=== PATIENT | male | born 1955 | race Caucasian/White ===

== ENCOUNTER → 2016-10-07 | Outpatient (CLI) | payer OTHER ==
[~2016-10-07] MED LIST: ALB/IPRATROPIUM/1 E1 INH; AMIODARONE HCL100 MG PO; AMLODIPINE BESIL1 GM PO; ASPIRIN EC81 M1 PO; ASPIRIN PO; BRILINTA90 MG PO; BUSPAR5 MG PO; CATAPRES0.1 M1 PO; CHANTIX1 MG BC; CLONIDINE PO; DULOXETINE HCL60 MG PO; FARXIGA10 MG PO; FLEXERIL10 MG PO; FUROSEMIDE40 MG PO; GLUCOPHAGE500 MG PO; HCTZ PO; HYDRALAZINE HCL25 MG PO; JANUVIA25 MG PO; K-DUR10 MEQ PO; KCL PO; LASIX PO; LIPITOR20 MG PO; LISINOPRIL20 MG PO; LORTAB 7.5-5001 TAB PO; LOTREL 5-20 MG1 CAP PO; LOTREL PO; METFORMIN HCL1000 M1 PO; METOPROLOL TAR25 MG PO; NEURONTIN300 MG PO; NITROGLYCERIN0.4 MG SL; NITROGYLCERIN SUBLINGUAL; NOVOLOG FL100 UNIT/1; OMEPRAZOLE20 M1 PO; PLAVIX PO; PREDNISONE PO; SYMBICORT 160/4.6 GM INH; TEKTURNA PO; TOPROL XL PO; TYLENOL EXTRA500 M1 PO; VASCEPA1 GM PO; VICODIN 5/500 T1 TAB PO; ZESTRIL40 MG PO; ZOCOR PO
[2016-10-07 13:00] LABS: URINE APPEARANCE CLEAR; URINE BILIRUBIN NEG (NEG); URINE BLOOD NEG (NEG); URINE COLOR YELLOW; URINE GLUCOSE >1000 MG/DL (NEG); URINE KETONE NEG (NEG); URINE LEUKOCYTE ESTERASE NEG (NEG); URINE NITRATE NEG (NEG); URINE PROTEIN NEG (NEG); URINE SPECIFIC GRAVITY 1.025 (1.003-1.035); URINE UROBILINOGEN 0.2 MG/DL (NEG)
[2016-10-07 13:02] LABS: CULTURE INDICATED? NO
== END | disposition home or self-care (01) ==
LOC: CLAB 11:36
PROVIDERS: Nurse Practitioner
DX: R10.31 Right lower quadrant pain (principal); R10.32 Left lower quadrant pain
CPT/HCPCS: 81003

== ENCOUNTER → 2016-10-21 | Outpatient (CLI) | payer OTHER ==
[2016-10-21 14:56] LABS: CREATININE SERUM 1.7 mg/dL (0.6-1.4); GLOM FILT RATE Estimated 42.3 mL/min (>60)
== END | disposition home or self-care (01) ==
LOC: CCAT 13:45
PROVIDERS: Nurse Practitioner
DX: R10.31 Right lower quadrant pain (principal); R10.32 Left lower quadrant pain
CPT/HCPCS: 36415; 82565; 84520

== ENCOUNTER → 2016-10-25 | Outpatient (CLI) | payer OTHER ==
--- NOTE | ~2016-10-25 | CT4 ---
[facility] A Service [facility] RADIOLOGY TEXT RESULTS PATIENT: ELAINE DONOVAN LOCATION: CCAT : 54 UNIT #: [id number] AGE: [address]: ELEANOR CORNELIUS APRN SEX: M ORDER DR: [id number] [facility] [address]. [place], [place] [address] [id number] O MR#: [id number] Acc #: [id number] NAME: ELAINE DONOVAN. : 1955 SEX: M STUDY DATE/TIME: 10/25/2016 9:42 UNIT: CCAT ROOM: STUDY DESCRIPTION: CT Abd and Pelv Wo Cont Attending Physician: Eleanor Cornelius Aprn Referring Physician: Eleanor Cornelius Aprn Ordering Physician: Eleanor Cornelius Aprn Primary Care Physician: Inocencio Yost M.D. MEDICAL IMAGING REPORT This report is preliminary unless electronic signature is present EXAM CT abdomen and pelvis without contrast INDICATIONS Right-sided abdominal pain for the past [address] of the abdomen and pelvis The CT exam was performed with one or more of the following radiation dose reduction techniques: automatic exposure control, adjustment of mA and/or kV according to patient size, and iterative reconstruction. COMPARISON: None. FINDINGS Abdomen without contrast: The included lung bases are clear. Liver enlarged measuring 20.8 cm. Hepatic steatosis. Kidneys unremarkable. 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 Unremarkable pancreas and gallbladder. The bowel loops are nondilated. Appendix is normal. Pelvis without contrast: No radiodense bladder calculus. Previous aortofemoral bypass. No pelvic mass or fluid. No aggressive appearing bone lesion. IMPRESSION 1. No acute findings. 2. Hepatomegaly with steatosis. [facility] A Service [facility] RADIOLOGY TEXT RESULTS PATIENT: ELAINE DONOVAN LOCATION: CCAT : 54 UNIT #: [id number] AGE: [address]: ELEANOR CORNELIUS APRN SEX: M ORDER DR: Dictated by... Garo Astudillo M.D. THIS IS AN ELECTRONICALLY VERIFIED REPORT Garo Astudillo M.D. at 10/26/2016 7:11 AM YONY/rosibel TD: 10/25/2016 12:55 JOB #: [id number] MEDICAL IMAGING REPORT Page 1 of 1 COPY
== END | disposition home or self-care (01) ==
LOC: CCAT 08:37
DX: R10.31 Right lower quadrant pain (principal); R10.32 Left lower quadrant pain; R16.0 Hepatomegaly, not elsewhere classified; K76.0 Fatty (change of) liver, not elsewhere classified
CPT/HCPCS: 74176

== ENCOUNTER → 2016-10-27 | Day surgery (SDC) | payer OTHER ==
--- NOTE | ~2016-10-27 | OR ---
Unit #: [id number] #: [id number] Patient: ELAINE DONOVAN [id number] [address] [place], [place] [address] [id number] O MR#: [id number] NAME: ELAINE DONOVAN ROOM: Date of Procedure: 10/27/2016 Admission Date: 10/27/2016 Surgeon: Pablo Locke M.D. : 1955 Attending Physician: Pablo Locke M.D. Referring Physician: Pablo Locke M.D. Primary Care Physician: Inocencio Yost M.D. OPERATIVE REPORT ATTENDING PHYSICIAN Dr. Inocencio Yost. PREOPERATIVE DIAGNOSES The patient has presented with a history of left and right lower quadrant abdominal pain, epigastric pain, dyspepsia, as well as needs a colorectal cancer screening. PROCEDURES PERFORMED Upper gastrointestinal endoscopy as well as colonoscopy with polypectomy. POSTOPERATIVE DIAGNOSES For upper endoscopy: Completely normal examination up to third part of duodenum. For colonoscopy: The patient had two polyps. The first one was in the cecum and the second one was in the rectum. The polyps ranged in size from 4 to 8 mm each. In addition, rest of the examination up to cecum and terminal ileum was normal. The quality of the prep was excellent. RECOMMENDATIONS 1. Follow up the results of polyp histology. 2. The patient will be seen in the office in 10 to 12 weeks' time. SEDATION USED MAC. DESCRIPTION OF PROCEDURE Following detailed explanation of the potential risks and complications of upper endoscopy and a colonoscopy, namely perforation, bleeding, and complication related to sedation, the patient was brought to GI lab and laid in the left lateral decubitus position. Lubricated tip of the Olympus video upper endoscope was passed through the bite block into the proximal esophagus under direct vision. The entire esophageal mucosa was examined and appeared normal. Z-line was nicely demarcated, there being no esophagitis or hiatus hernia. The scope was then advanced into the gastric cavity and the latter was insufflated. Mucosa of the fundus, body, and antrum was examined and appeared unremarkable. Pylorus was intubated with visualization of the normal duodenal bulb and second and third part of the duodenum. Upon withdrawal and retroflexion, incisura, cardia, and greater curve was examined and no additional findings were noted. The scope was then withdrawn in the distal esophagus. The entire Unit #: [id number] #: [id number] Patient: ELAINE DONOVAN esophageal mucosa was examined all the way up to pharynx. No additional findings were noted. The examination table was then turned by 180 degrees and the patient was positioned for a colonoscopy. A digital rectal examination was performed, which was normal. Lubricated tip of the Olympus video colonoscope was inserted through the anus and advanced under direct vision. The scope was advanced past rectosigmoid into descending colon. No diverticula were noticed in this area. The scope tip was then navigated all the way up to cecum with visualization of ileocecal valve and the appendiceal orifice. Preparation was good with good visualization and photodocumentation was obtained. Last few inches of the terminal ileum were also visualized after intubation of the ileocecal valve and appeared normal. Successive segments of the colonic mucosa were examined upon withdrawal. Single sessile polyp was noted in the cecum. This was about 8 mm in size. It was removed using snare polypectomy. A second smaller sessile polyp about 5 mm in size was seen in the rectum, it was also removed using snare polypectomy. Both the polyps were retrieved and sent for histology. Excellent hemostasis was achieved. No additional polyps were found. The patient did not have any diverticulosis nor any hemorrhoids. The scope was then withdrawn and the patient returned to recovery area. He tolerated the procedure without any postprocedure complications. It is noteworthy, the patient also had a normal CT scan of the abdomen done recently. Dictated by... Donovan Haas/marquise TD: 10/27/2016 22:39 JOB #: [id number] OPERATIVE REPORT Page 1 of 1 X Pablo Locke MD X PROCEDURE OPERATIVE NOTE
== END | disposition home or self-care (01) ==
LOC: COPS 12:45
DX: Z12.11 Encounter for screening for malignant neoplasm of colon (principal); D12.0 Benign neoplasm of cecum; K62.1 Rectal polyp; I25.119 Atherosclerotic heart disease of native coronary artery with unspecified angina pectoris; J44.9 Chronic obstructive pulmonary disease, unspecified; F17.210 Nicotine dependence, cigarettes, uncomplicated; Z95.5 Presence of coronary angioplasty implant and graft; Z98.890 Other specified postprocedural states
CPT/HCPCS: 82947; 88305; J2250

== ENCOUNTER → 2017-01-11 | Outpatient (CLI) | payer OTHER ==
--- NOTE | ~2017-01-11 | US83 ---
[facility] A Service of [facility] & [facility] RADIOLOGY TEXT RESULTS PATIENT: ELAINE DONOVAN LOCATION: CNIV : 53 UNIT #: [id number] AGE: [address]: INOCENCIO ROTHMAN MD SEX: M ORDER DR: [id number] [place] [id number] [facility]. [place], [place] [address] [id number] O MR#: [id number] #: [id number] NAME: ELAINE DONOVAN : 1955 SEX: M STUDY DATE/TIME: 01/11/2017 8:54 UNIT: CNIV ROOM: STUDY DESCRIPTION: [employer] Attending Physician: Inocencio Rothman M.D. Referring Physician: Inocencio Rothman M.D. Ordering Physician: Inocencio Rothman M.D. Primary Care Physician: Inocencio Rothman M.D. MEDICAL IMAGING REPORT This report is preliminary unless electronic signature is present DATE OF EXAM 01/11/2017 REASON FOR EXAM Left leg pain x2 months. History of lower extremity stenting. EXAM Left lower extremity graft surveillance ultrasound. FINDINGS The left common femoral artery demonstrates no significant color flow and appears to be occluded. The superficial femoral artery appears t be occluded throughout without evidence of flow. The profunda femoral artery is patent and has a velocity of 66 cm/sec. The popliteal artery appears to have flow within it and a velocity of 39 cm/sec. The tibioperoneal trunk is patent with a velocity of 38 cm/sec. The peroneal artery has a slow waveform and a velocity of 11 cm/sec. Anterior tibial artery has a velocity of 30 cm/sec with biphasic waveform and the posterior tibial artery has a diminished waveform and a velocity of 7 cm/sec. IMPRESSION Occluded left lower extremity stent with reconstitution of the popliteal artery and tibial vessels, likely via collaterals. The profunda femoral artery is patent. Dictated by... Lobo Vargas M.D. THIS IS AN ELECTRONICALLY VERIFIED REPORT [facility] A Service of [facility] & [facility] RADIOLOGY TEXT RESULTS PATIENT: ELAINE DONOVAN LOCATION: [facility] : 54 UNIT #: [id number] AGE: [address]: INOCENCIO ROTHMAN MD SEX: M ORDER DR: Lobo Vargas M.D. at 01/17/2017 5:09 PM HASEEB/terence TD: 01/12/2017 00:37 JOB #: [id number] MEDICAL IMAGING REPORT Page 1 of 1 COPY
== END | disposition home or self-care (01) ==
LOC: CNIV 08:23
DX: M79.662 Pain in left lower leg (principal); T82.898A Other specified complication of vascular prosthetic devices, implants and grafts, initial encounter
CPT/HCPCS: 93926

== ENCOUNTER → 2017-03-02 | Outpatient (CLI) | payer OTHER ==
[2017-03-02 08:45] LABS: INR 0.9; PROTHROMBIN TIME (PATIENT) 10.1 SECONDS (10.0-11.7)
[2017-03-02 08:57] LABS: HEMATOCRIT 40.5 % (38.0-50.0); HEMOGLOBIN 14.4 gm/dL (13.0-16.0); MEAN CELL VOLUME 89.1 FL (83-96); MEAN CORPUSCULAR HEMOGLOBIN 31.7 PG (28-34); MEAN CORPUSCULAR HGB CONC 35.6 g/dL (30-36); MEAN PLATELET VOLUME 9.7 FL (6.5-11.5); RED BLOOD COUNT 4.55 X10e (3.90-5.60); RED CELL DISTRIBUTION WIDTH 15.3 % (11.0-15.5); WHITE BLOOD COUNT 8.7 X10e3 (4.0-10.5)
[2017-03-02 09:07] LABS: BUN/CREATININE RATIO 17.22; CALCIUM SERUM 8.9 mg/dL (8.4-10.2); CREATININE SERUM 1.8 mg/dL (0.6-1.4); GLOM FILT RATE Estimated 39.5 mL/min (>60); POTASSIUM 4.2 mmol/L (3.5-5.1)
== END | disposition home or self-care (01) ==
LOC: CLAB 07:55
PROVIDERS: Registered Nurse
DX: I73.9 Peripheral vascular disease, unspecified (principal)
CPT/HCPCS: 36415; 80048; 85027; 85610

== ENCOUNTER → 2017-03-03 | Outpatient (CLI) | payer OTHER ==
[~2017-03-03] VITALS: Ht 167.6 cm; Wt 118.3 kg
--- NOTE | ~2017-03-03 | OR ---
Unit #: [id number] #: [id number] Patient: ELAINE DONOVAN [id number] [address] [place], [place] [address] [id number] O MR#: [id number] NAME: ELAINE DONOVAN ROOM: Date of Procedure: 03/03/2017 Admission Date: 03/03/2017 Surgeon: Julio Sanchez M.D. : 1955 Attending Physician: Jluio Sanchez M.D. Referring Physician: Julio Sanchez M.D. Primary Care Physician: Inocencio Yost M.D. PROCEDURE OPERATIVE NOTE PREOPERATIVE DIAGNOSIS Left lower extremity short distance claudication. POSTOPERATIVE DIAGNOSIS Left lower extremity short distance claudication. PROCEDURES PERFORMED 1. Abdomen and left lower extremity arteriogram. 2. Left femoral 4-Guamanian sheath. CONTRAST USED CO2 with 10 mL of Visipaque. ANESTHESIA Conscious sedation with local. INDICATIONS FOR PROCEDURE This is a patient with a history of aortobifem bypass and left SFA stents, who had a short distance claudication of the left lower extremity with duplex showing occlusion of the stents. He was recommended lower extremity arteriogram to evaluate revascularization options. His creatinine was elevated with a GFR of 36 and CO2 was chosen and he was prepared with hydration with bicarb. Options, risks, and benefits were explained and he understood and agreed to proceed. DESCRIPTION OF PROCEDURE The patient was brought to the operating room and monitored by a nurse in the room and remained stable. He was given 1 mg of Versed and 50 mcg of fentanyl intravenously. The groins were cleaned, prepped, and draped in the usual sterile fashion. He was fairly tender in the right groin. On the left side using ultrasound guidance, the vessels were evaluated, but they appeared to be very deep and could not be reached by the ultrasound. Using fluoroscopy, I accessed the left femoral artery graft with single-wall puncture needle after administering 1% lidocaine. Successful access was achieved and a guidewire and a 4-Guamanian sheath were placed. There was scar tissue in the groin. A 4-Guamanian Omni Flush catheter was placed at the level of the L1 vertebra and CO2 system was prepared and the patient was placed in a Trendelenburg position. CO2 was injected by hand. The catheter was pulled down to above the aortic bifurcation and pelvic arteriogram was obtained with another injection. Catheter was then pulled down to the left limb of the aortobifemoral graft and using hand injections, left lower extremity angiogram was obtained up to the mid Unit #: [id number] #: [id number] Patient: ELAINE DONOVAN calf. Next, 20 mL of 50% Visipaque was injected and images of the above and the below-knee popliteal artery were taken. An oblique injection was taken with CO2 once again of the groin to confirm common femoral sheath placement. The sheath was then removed and manual pressure was used for hemostasis. The patient was transported to the recovery room in stable condition. FINDINGS Abdominal aorta reveals patent aortobifem bypass graft. Renal arteries are faintly visualized. The right and left limbs of the aortobifemoral graft are patent. On the left side, the profunda femoral artery is patent. Superficial femoral artery is completely occluded with long stents from the proximal to the distal portion. Above-knee popliteal artery is diseased, but patent. It appears to be patent for several centimeters above the knee joint, which reconstitutes with collaterals. Proximal to this, just beyond the adductor hiatus, the artery is patent, but has [id number]-tvkwhrde disease. Below-knee popliteal artery is relatively free of disease. 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 The anterior tibial artery appears to fill in the midportion and it seems faintly. The peroneal artery seems to be the main runoff into the leg and seemed up to the ankle. IMPRESSION Patent aortobifemoral bypass graft. Left superficial femoral artery occlusion with above-knee popliteal artery reconstitution. Essentially one-vessel runoff in the left peroneal artery below the knee. Postop plan is to consider femoral to above-knee popliteal or below-knee popliteal artery bypass. Dictated by... Julio Sanchez M.D. SA/marquise TD: 03/04/2017 07:56 JOB #: [id number] PROCEDURE OPERATIVE NOTE Page 1 of 1 X Julio Sanchez MD X PROCEDURE OPERATIVE NOTE
== END | disposition home or self-care (01) ==
LOC: CIVR 06:09
DX: I70.212 Atherosclerosis of native arteries of extremities with intermittent claudication, left leg (principal); T82.598A Other mechanical complication of other cardiac and vascular devices and implants, initial encounter; Z95.820 Peripheral vascular angioplasty status with implants and grafts; Z98.890 Other specified postprocedural states; I65.23 Occlusion and stenosis of bilateral carotid arteries; Z98.61 Coronary angioplasty status; I25.10 Atherosclerotic heart disease of native coronary artery without angina pectoris; E11.42 Type 2 diabetes mellitus with diabetic polyneuropathy; G47.33 Obstructive sleep apnea (adult) (pediatric)
CPT/HCPCS: 75625; 75710; 99152; 99153; C1725; J1644; J2250; J3010; J7060; Q9967